=== PATIENT | male | born 1960 | race Caucasian/White ===

== ENCOUNTER 2018-02-08 06:12 | Emergency (ER) | END 2018-02-08 08:11 | disposition home or self-care (01) ==

== ENCOUNTER 2018-06-14 07:42 | Emergency (ER) | payer MEDICAID ==
[~2018-06-14] VITALS: Wt 78.0 kg
[~2018-06-14 07:42] MED LIST: ONDA8TAB14 PO
[2018-06-14 07:46] VITALS: BP 160/78; PULSE 88; RESP 18
--- NOTE | 2018-06-14 07:59 | ERD ---
ER Documentation Chief Complaint Chief Complaint RIGHT JOSE C PAIN X 6 WEEKS HPI 57-year-old male, with history of hyperuricemia presents to the emergency department, complaining of 6 weeks with persistent, chronic, right knee pain and left first metatarsal area. The pain is dull, constant, no history of trauma, no local fever, no local erythema, no deformity. The patient denies distal weakness, numbness or tingling. ROS All systems reviewed and are negative except as per history of present illness. Medications Home Meds Active Scripts Hydrocodone/Acetaminophen ([place] 5-325 Tablet) 1 Each Tablet, 1 TAB PO QHS PRN for PAIN, #7 TAB Prov:ROXI DAO MD 06/14/18 Naproxen* (Naprosyn*) 500 Mg Tablet, 500 MG PO BID PRN for PAIN AND/OR INFL AMMATION for 5 Days, #10 TAB Prov:ROXI DAO MD 06/14/18 Prednisone* (Prednisone*) 20 Mg Tab, 40 MG PO DAILY for 4 Days, TAB Prov:ROXI DAO MD 06/14/18 Ondansetron (Ondansetron Odt) 8 Mg Tab.rapdis, 8 MG PO Q6H PRN for NAUSEA AND/OR VOMITING, #10 TAB Prov:JOSSELIN BEYER MD 02/08/18 Allergies Allergies: Coded Allergies: No Known Drug Allergies (Verified Allergy, Unknown, 02/08/18) PMhx/Soc History of Surgery: No Anesthesia Reaction: No Hx Neurological Disorder: No Hx Respiratory Disorders: No Hx Cardiac Disorders: No Hx Psychiatric Problems: No Hx Miscellaneous Medical Probl: Yes (DM, HTN) Hx Alcohol Use: Yes Hx Substance Use: No Hx Tobacco Use: No FmHx Family History: No diabetes, No coronary disease Physical Exam Vitals Vital Signs Date Temp Pulse Resp B/P (MAP) Pulse Ox O2 O2 Flow FiO2 Time Delivery Rate 06/14/18 98.1 88 18 160/78 99 07:46 (105) Physical Exam Const: No acute distress Head: Atraumatic Eyes: Normal Conjunctiva ENT: Normal External Ears, Nose and Mouth. Neck: Full range of motion. No meningismus. Resp: Clear to auscultation bilaterally Cardio: Regular rate and rhythm, no murmurs Abd: Soft, non tender, non distended. Normal bowel sounds Skin: No petechiae or rashes Back: No midline or flank tenderness Ext: Tenderness to palpation of the right knee on the left first metatarsal. Distal neurovascular grossly intact. No cyanosis, or edema Neur: Awake and alert Psych: Normal Mood and Affect Results 24 hrs Current Medications Medications Dose Sig/Jerry Start Time Status Last (Trade) Ordered Route PRN Stop Time Admin Dose Reason Admin 125 mg ONCE ONCE 06/14/18 DC 06/14/18 Methylprednis IM 08:30 06/14/18 08:08 olone Sodium 08:31 Succinate (Solu-Medrol) Ketorolac 15 mg ONCE STAT 06/14/18 DC 06/14/18 Tromethamine IM 08:03 06/14/18 08:08 (Toradol) 08:04 Procedures/MDM Vital signs stable. Differential diagnosis considered include osteoarthritis, rheumatoid arthritis, gouty arthritis, reactive arthritis, lupus, thyroid disease. Low suspicion for septic arthritis. During the ED course the patient remained stable, no new complaints. The patient received treatment with Solu-Medrol and Toradol IM presenting overall improvement of the symptoms. Results and clinical impression discussed with the patient who agrees with management. The patient is stable to be treated outpatient and will be discharged home. some side effects of prescribed medications (headache, rash, nausea, vomiting, diarrhea, drowsiness, habituation, bleeding, hypertension, interactions with other medications) were reviewed. The patient was informed that the evaluation in the emergency department has been done to rule out an acute emergency, therefore, chronic conditions like malignancy or other diseases have not been evaluated; therefore, the patient was instructed to follow up with the primary care provider in the next 48h. If symptoms persist, worsen or new symptoms develop, then patient should return to the ED immediately. Instructions explained and given directly by me to the patient with acknowle dgment and demonstrated understanding. Disclaimer: Inadvertent spelling and grammatical errors are likely due to EHR/dictation software use and do not reflect on the overall quality of patient care. Also, please note that the electronic time recorded on this note does not necessarily reflect the actual time of the patient encounter. Departure Diagnosis: Primary Impression: Gouty arthritis Condition: Stable Additional Instructions: Muchas ashley por [facility] para dubon servicio. Esperamos que en dubon visita a la hope de emergencia dubon problema medico haya sido solucionado y que se sienta mucho mejor. Para estar seguros que dubon mejoria sigue en proceso, le pedimos el favor de hacer luis bronson de seguimiento medico con dubon doctor primario en los proximos 2-4 ojeda. Lleve con usted estos documentos y las medicinas recetadas. Si naomie sintomas empeoran, NO SE ESPERE, por favor regrese a hope de emergencia INMEDIATAMENTE. En steve que usted no tenga un mdico de atencin primaria: Llame al mdico o clnica comunitaria de referencia que aparece abajo tomasa las horas de consultorio para hacer luis bronson para que le vean. CLINICAS: [place] [id number] [phone] [facility] [phone] [facility] [phone] [facility] [phone] [facility]. [place] [address] [phone] [facility]. [phone] ROXI AMAYA MD Jun 14, 2018 07:59
[2018-06-14] MEDS ORDERED: KETOROLAC 15 MG INJ IM STA (08:03)
[2018-06-14] MEDS ORDERED: HYDR-4011 PO (08:06)
[2018-06-14] MEDS ORDERED: PRED20TA PO (08:06)
[2018-06-14] MEDS ORDERED: NAPR-985 PO (08:06)
[2018-06-14] MEDS ORDERED: METHYLPREDNISOLONE 125 MG INJ IM ONE (08:30)
== END 2018-06-14 08:38 | disposition home or self-care (01) ==
LOC: FTE 07:42
DX: M10.00 Idiopathic gout, unspecified site (principal); I10 Essential (primary) hypertension; E11.9 Type 2 diabetes mellitus without complications
CPT/HCPCS: 96372; J1885; J2930; Z7502